=== PATIENT | female | born 1980 ===

== ENCOUNTER 2017-05-16 11:00 | Emergency (ER) | payer SELFPAY ==
[2017-05-16 11:32] VITALS: RESP 18
--- NOTE | 2017-05-16 12:23 | ED PDOC ---
HPI: Abdomen Chief Complaint (Provider): abdominal pain History Per: Patient History/Exam Limitations: no limitations Onset/Duration Of Symptoms: Days (1), Intermittent Episodes Current Symptoms Are (Timing): Intermittent Episodes Pain Scale Rating Of: 6 Quality Of Discomfort: Cramping Associated Symptoms: Diarrhea Exacerbating Factors: None Last Bowel Movement: Today Abnormal Vaginal Bleeding: No <Avril Rodrigues - Last Filed: 05/16/17 16:15> <Valeria Chapman - Last Filed: 05/17/17 08:00> Time Seen by Provider: 05/16/17 11:45 Chief Complaint (Nursing): Abdominal Pain Additional Complaint(s): 36 yo, f, PMhx/o GDM presents to ED c/o epigastric abdominal pain started yesterday afternoon 5 pm, intermittent, 6/10 intensity, not radiated, partially alleviated with pepto bismol, associated with nausea, 2 non-bloddy diarrhea today in the morning. Patient also c/o of left breast pain intercostal inferior noticed 3 days ago, intermittent, sharp, not radiated, reproducible. she denies fever, cough, vomiting, SOB, breast lump, telorrhagia, chest trauma. LMP: . PMD: no PMD.last seen [facility] (Avril Rodrigues) Supervising Attending Note - Supervising Attending Note The Documented history was done by the: Physician Vending Stand Supervisor, Attending Physician The documented physical exam was done by the: Physician Vending Stand Supervisor, Attending Physician The documented procedures were done by the: Physician Vending Stand Supervisor, Attending Physician - Attestation: I have personally seen and examined this patient.: Yes I have fully participated in the care of the patient.: Yes I have reviewed all pertinent clinical information: Yes <Valeria Chapman - Last Filed: 05/17/17 08:00> Past Medical History - Medical History PMH: Denies: HIV, Chronic Kidney Disease Other PMH: GDM - Surgical History Surgical History: Appendectomy, - Family History Family History: States: Diabetes Other Family History: father - Social History Alcohol: None Drugs: Denies <Avril Rodrigues - Last Filed: 05/16/17 16:15> Reviewed: Historical Data, Nursing Documentation, Vital Signs <Valeria Chapman - Last Filed: 05/17/17 08:00> Vital Signs: Last Vital Signs Temp 98.7 F 05/16/17 16:42 Pulse 72 05/16/17 16:42 Resp 18 05/16/17 16:42 BP 113/62 05/16/17 16:42 Pulse Ox 98 05/16/17 16:42 - Home Medications Home Medications: Ambulatory Orders Medication Instructions Recorded Cholecalciferol/Cu/Docosahex 200 mg PO DAILY 01/24/14 [Vitafol Ultra] Metformin Hydrochloride [Metformin] 500 mg PO BID 01/24/14 Famotidine [Pepcid] 20 mg PO DAILY #14 tab 05/16/17 - Allergies Allergies/Adverse Reactions: Allergies Allergy/AdvReac Type Severity Reaction Status Date / Time No Known Allergies Allergy Verified 01/24/14 04:59 Review of Systems Gastrointestinal: Positive for: Nausea, Abdominal Pain, Diarrhea <Avril Rodrigues - Last Filed: 05/16/17 16:15> ROS Statement: Except As Marked, All Systems Reviewed And Found Negative <Valeria Chapman - Last Filed: 05/17/17 08:00> Physical Exam - Physical Exam Appears: Positive for: Well, No Acute Distress Head Exam: Positive for: ATRAUMATIC, NORMOCEPHALIC Skin: Positive for: Normal Color Eye Exam: Positive for: Normal appearance Neck: Positive for: Normal Cardiovascular/Chest: Positive for: Regular Rate, Rhythm, Other (reproducible chest pain intercostal below left breast. Left breast exam normal.liquid sugar melter on room ). Negative for: Murmur Respiratory: Positive for: Normal Breath Sounds. Negative for: Crackles, Rales , Rhonchi, Stridor Gastrointestinal/Abdominal: Positive for: Soft, Tenderness (epigastric ). Negative for: Distended, Guarding, Rebound Back: Positive for: Normal Inspection. Negative for: L CVA Tenderness, R CVA Tenderness Extremity: Positive for: Normal ROM. Negative for: Pedal Edema Neurologic/Psych: Positive for: Alert, Oriented <Avril Rodrigues - Last Filed: 05/16/17 16:15> - Reviewed Nursing Documentation Reviewed: Yes Vital Signs Reviewed: Yes <Valeria Chapman - Last Filed: 05/17/17 08:00> - Laboratory Results Result Diagrams: 05/16/17 12:50 05/16/17 12:50 - ECG O2 Sat by Pulse Oximetry: 96 <Avril Rodrigues - Last Filed: 05/16/17 16:15> - Laboratory Results Result Diagrams: 05/16/17 12:50 05/16/17 12:50 - Progress Re-evaluation Time: 15:59 Condition: Re-examined, Improved <Valeria Chapman - Last Filed: 05/17/17 08:00> Medical Decision Making <Avril Rodrigues - Last Filed: 05/16/17 16:15> <Valeria Chapman - Last Filed: 05/17/17 08:00> Medical Decision Makin:20 Initial impression Gastroenteritis chest pain. Chostochondritis Left breast pain secondary to chostocondritis Plan CBC, CMP, troponin, lipase EKG Abd Us pepcid, Zofran iv fluids -reevaluate 15: 43 Patient reevaluated reports that abdominal pain subsided, no more diarrhea, patient hungry. Abd Us: small echogenicfocus focus without shadowing within a contracted gallbladder. Etiology perhaps small stone or polyp. elective fasting ultrasound attention gallbladder advised for further evaluation Labs reviewed normal,EKG normal, troponin normal (Avril Rodrigues) Disposition <Avril Rodrigues - Last Filed: 05/16/17 16:15> - Patient ED Disposition Is Patient to be Admitted: No Doctor Will See Patient In The: Office Counseled Patient/Family Regarding: Studies Performed, Diagnosis, Need For Followup - Disposition Disposition: Routine/Home Disposition Time: 16:00 <Valeria Chapman - Last Filed: 05/17/17 08:00> - Clinical Impression Clinical Impression: Abdominal pain in female - Disposition Referrals: [facility] [Outside] Condition: GOOD Additional Instructions: Take your medications as instructed. Follow up with your PCP in 2-3 days. Prescriptions: Famotidine [Pepcid] 20 mg PO DAILY #14 tab Instructions: Stomach Ache and Stomach Upset Print Language: TRISTANIAN
[2017-05-16 12:57] LABS: BASO # 0.1 K/uL (0.0-0.2); BASO % 0.9 % (0.0-2.0); EOS # 0.1 K/uL (0.0-0.7); EOS % 1.5 % (0.0-4.0); HEMOGLOBIN 13.8 g/dL (12.0-16.0); LYMPH % 26.8 % (20.0-40.0); MEAN CELL VOLUME 87.7 fl (81.0-99.0); MEAN CORPUSCULAR HEMOGLOBIN 30.5 pg (27.0-31.0); MEAN CORPUSCULAR HGB CONC 34.7 g/dL (33.0-37.0); MEAN PLATELET VOLUME 8.5 fl (7.2-11.7); MONO # 0.6 K/uL (0.0-0.8); MONO % 7.5 % (0.0-10.0); NEUT # 4.8 K/uL (1.8-7.0); NEUT % 63.3 % (50.0-75.0); NRBC % 0.1 % (0.0-0.0); RBC 4.53 Mil/uL (3.80-5.20); RED CELL DISTRIBUTION WIDTH 12.7 % (11.5-14.5); WHITE BLOOD COUNT 7.5 K/uL (4.8-10.8)
[2017-05-16 13:08] LABS: ALB/GLOB RATIO 1.2 (1.0-2.1); ALBUMIN 4.3 g/dL (3.5-5.0); ALT/SGPT 28 U/L (9-52); AST/SGOT 25 U/L (14-36); BLOOD UREA NITROGEN 15 mg/dl (7-17); CALCIUM 9.6 mg/dL (8.4-10.2); GFR AFRICAN-AMERICAN > 60; GFR NON-AFRICAN AMERICAN > 60; LIPASE 80 U/L (23-300)
--- NOTE | 2017-05-16 14:22 | CARD ---
APPROVED REPORT EKG Measurement Heart [id number] <Conclusion> Normal sinus rhythm Normal ECG
[2017-05-16] MEDS ORDERED: Sodium Chloride 0.9% 1,000 ML IV SCH (15:00)
--- NOTE | 2017-05-16 15:40 | US ---
HISTORY: Epigastric abdominal tenderness,diarrhea COMPARISON: 01/24/2014 CT abdomen and pelvis TECHNIQUE: Sonographic evaluation of the right upper quadrant of the abdomen. FINDINGS: LIVER: Measures 16.5 cm in length. Hepatopedal blood flow. Fatty infiltration manifest ultrasonographically as increased echogenicity of the liver parenchyma. No mass. No intrahepatic bile duct dilatation. GALLBLADDER: Small echogenic focus without shadowing within a contracted gallbladder, etiology, significance uncertain perhaps small stone or polyp. Elective follow-up ultrasound in a fasting state is recommended. COMMON BILE DUCT: Measures 5.1 mm. No stones. No dilatation. PANCREAS: Unremarkable as visualized. No mass. No ductal dilatation. RIGHT KIDNEY: Measures 4.4 x 11.6 cm in length. Normal echogenicity. No calculus, mass, or hydronephrosis. AORTA: No aneurysmal dilatation. IVC: Unremarkable. OTHER FINDINGS: None . IMPRESSION: No acute findings related to/accounting for the clinical presentation. Small echogenic focus within a contracted gallbladder. Elective fasting ultrasound attention gallbladder advised for further evaluation.
[2017-05-16 16:43] VITALS: BP 113/62; PULSE 72; TEMP 98.7; O2SAT 98
== END 2017-05-16 17:00 | disposition home or self-care (01) ==
LOC: H.ER 11:00
DX: R10.13 Epigastric pain (principal); N64.4 Mastodynia; Z79.84 Long term (current) use of oral hypoglycemic drugs
CPT/HCPCS: 76705; 80053; 81025; 83690; 84484; 85025; 93005; 96374; 96375; 99282; J2405; J7040